=== PATIENT | female | born 1980 ===

== ENCOUNTER 2018-03-01 14:44 | Emergency (ER) | payer OTHER, MEDICAID ==
[2018-03-01 15:33] VITALS: BMI 26.5
--- NOTE | 2018-03-01 15:47 | OBHP ---
Datetime: 03/01/2018 15:06 IP Adm Impression: , intrauterine IP Admit Plan: Observation/Evaluation Admit Comment, IP Provider: 37 yo female with an IUP at 35.2 weeks and presents with c/o of vaginal bleeding x 2 today when she wipes herself. Upon further questioning she states that it was only spott ing noted in the toilet paper and further states that she had a Baby Shower yesterday and she was on her feet all day. Admits to adequate FM. No gush of fluid and no pains or contractions. Denies recent intercourse. Admits to drinking little water SSE exam revealed no blood or fluid in vagina and tested Nitrazine negative SVE cx: closed, long thick and high. Urine clear and denied any urinary complaints. One contraction noted with mild irritability Gave po hydration and will continue monitoring Pelvic Type - PN: Adequate Extremities - PN: Normal Abdomen - PN: Normal Back - PN: Normal Breast - PN: Not Done Lungs - PN: Normal Heart - PN: Normal Thyroid - PN: Normal Neurologic - PN: Normal HEENT - PN: Normal General - PN: Normal FHR - Baseline A Provider: 140 Membranes, Provider: Intact Contraction Comments Provider: Ocassional Gestation - Est Wks by US: 35.2 Nitrazine Provider: Negative EGA AdmitDate IP: 35.2 Vital Signs Provider: Reviewed; Within Normal Limits IP Chief Complaint: Vaginal bleeding NICHD Variability Prov Fetus A: Moderate 6-25bpm NICHD Accel Fetus A IP Provider: 10X10 FHR Category Provider Fetus A: Category I NICHD Decel Fetus A IP Provider: None Dilatation, Provider: 0 Effacement, Provider: 0 Station, Provider: High Genitourinary Exam: Normal DTRs - PN: Normal
[2018-03-01 16:01] LABS: SQUAMOUS EPITHIAL 2 /hpf (0-5); URINE BACTERIA OCC (<OCC); URINE BILIRUBIN NEGATIVE (NEGATIVE); URINE BLOOD 1+ (NEGATIVE); URINE CLARITY Clear (Clear); URINE COLOR Yellow (YELLOW); URINE GLUCOSE (UA) NORMAL (Normal); URINE LEUKOCYTE ESTERASE NEG Leu/uL (Negative); URINE PROTEIN NEGATIVE (NEGATIVE); URINE UROBILINOGEN NORMAL mg/dL (0.2-1.0)
== END 2018-03-01 17:06 | disposition home or self-care (01) ==
LOC: C.EROB 14:44
DX: O46.8X3 Other antepartum hemorrhage, third trimester (principal); Z3A.35 35 weeks gestation of pregnancy

== ENCOUNTER 2018-03-02 08:33 | Inpatient (IN) | payer MEDICAID, OTHER ==
[2018-03-01 15:33] VITALS: BMI 26.5
[2018-03-02] MEDS ORDERED: Lactated Ringer's 1,000 ML IV ONE ×2 (08:47→09:24)
--- NOTE | 2018-03-02 09:18 | OBHP ---
Datetime: 03/02/2018 09:05 IP Adm Impression: , intrauterine IP Admit Plan: Admit to unit Admit Comment, IP Provider: 37 yo female with an IUP at 35.3 weeks aprevius cxs seen yesterda with v b and ctx dc home ,reprots contractions since 4am, eveyr 5-10 min, dnie sany lof, +FM and reprots spo tting with wiping, dark red, no clots. Denies recent intercourse. 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 PMH: Hx of herpes PSH: CxS MEDS: PNV< Valtrex FHX: non coti butory NKDA A/P @ 35.3 wks GA previous cesearean section with ROM in early labor admit to L+D npo, ivf admissin labs cleesteone precop antibiocs abdomina prepe urias to gravity scds pt advised on pretemratu deivery with risk sassoiciated with transfer Pelvic Type - PN: Adequate Extremities - PN: Normal Abdomen - PN: Normal Back - PN: Normal Breast - PN: Not Done Lungs - PN: Normal Heart - PN: Normal Thyroid - PN: Not Done Neurologic - PN: Normal HEENT - PN: Normal General - PN: Normal Presentation-Admit: Vertex FHR - Baseline A Provider: 125 Amniotic Fluid Color, Provider: Clear Membranes, Provider: Ruptured Contraction Comments Provider: q 2-3 min Comments, ACOG Physical Exam: Postiive pooling clear blod tinged, postivei nitraine postive amnisure Gestation - Est Wks by US: 35.3 Pool Provider: Positive Nitrazine Provider: Positive EGA AdmitDate IP: 35.3 Vital Signs Provider: Reviewed IP Chief Complaint: Uterine contractions NICHD Variability Prov Fetus A: Moderate 6-25bpm FHR Category Provider Fetus A: Category II NICHD Decel Fetus A IP Provider: None Dilatation, Provider: 1 Effacement, Provider: 80 Station, Provider: -2 Genitourinary Exam: Normal DTRs - PN: Normal
[2018-03-02 09:24] LABS: BASO # 0.1 K/uL (0.0-0.2); BASO % 0.6 % (0.0-2.0); EOS % 0.4 % (0.0-4.0); HEMOGLOBIN 13.1 g/dL (11.0-16.0); LYMPH # 1.5 K/uL (1.0-4.3); LYMPH % 15.2 % (20.0-40.0); MEAN CELL VOLUME 93.9 fL (81.0-99.0); MEAN CORPUSCULAR HEMOGLOBIN 33.1 pg (27.0-31.0); MEAN CORPUSCULAR HGB CONC 35.3 g/dL (33.0-37.0); MEAN PLATELET VOLUME 9.8 fL (7.2-11.7); MONO # 0.6 K/uL (0.0-0.8); MONO % 5.6 % (0.0-10.0); NEUT # 7.7 K/uL (1.8-7.0); NEUT % 78.2 % (50.0-75.0); RBC 3.97 Mil/uL (3.80-5.20); RED CELL DISTRIBUTION WIDTH 13.4 % (11.5-14.5); WHITE BLOOD COUNT 9.8 K/uL (4.8-10.8)
[2018-03-02] MEDS ORDERED: Sodium Citrate/Citric Acid 15 ml Sol PO ONE (09:24)
[2018-03-02] MEDS ORDERED: ceFAZolin IV 2 gm in Dextrose 2 GM/50 ML BAG IVPB ONE ×2 (09:24→10:45)
--- NOTE | 2018-03-02 09:34 | OBADHP ---
Datetime: 03/02/2018 09:05 Admit Comment, IP Provider: 37 yo female with an IUP at 35.3 weeks aprevius cxs seen yesterda with v b and ctx dc home ,reprots contractions since 4am, eveyr 5-10 min, dnie sany lof, +FM and reprots spo tting with wiping, dark red, no clots. Denies recent intercourse. 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 PMH: Hx of herpes PSH: CxS MEDS: PNV< Valtrex FHX: non coti butory NKDA A/P @ 35.3 wks GA previous cesearean section with ROM in early labor admit to L+D npo, ivf admissin labs cleesteone precop antibiocs abdomina prepe urias to gravity scds pt advised on pretemratu deivery with risk sassoiciated with transfer Pelvic Type - PN: Adequate Extremities - PN: Normal Abdomen - PN: Normal Back - PN: Normal Breast - PN: Not Done Lungs - PN: Normal Heart - PN: Normal Thyroid - PN: Not Done Neurologic - PN: Normal HEENT - PN: Normal General - PN: Normal Presentation-Admit: Vertex FHR - Baseline A Provider: 125 Amniotic Fluid Color, Provider: Clear Membranes, Provider: Ruptured Contraction Comments Provider: q 2-3 min Comments, ACOG Physical Exam: Postiive pooling clear blod tinged, postivei nitraine postive amnisure Gestation - Est Wks by US: 35.3 Pool Provider: Positive Nitrazine Provider: Positive Vital Signs Provider: Reviewed IP Chief Complaint: Uterine contractions NICHD Variability Prov Fetus A: Moderate 6-25bpm FHR Category Provider Fetus A: Category II NICHD Decel Fetus A IP Provider: None Dilatation, Provider: 1 Effacement, Provider: 80 Station, Provider: -2 Genitourinary Exam: Normal DTRs - PN: Normal EGA AdmitDate IP: 35.3 IP Adm Impression: , intrauterine IP Admit Plan: Admit to unit Datetime: 03/01/2018 15:06 NICHD Accel Fetus A IP Provider: [facility]
[2018-03-02 09:35] LABS: INR 0.9; PROTHROMBIN TIME 10.2 SECONDS (9.7-12.2)
[2018-03-02 09:36] LABS: URINE BILIRUBIN NEGATIVE (NEGATIVE); URINE BLOOD 3+ (NEGATIVE); URINE CLARITY Clear (Clear); URINE COLOR Straw (YELLOW); URINE GLUCOSE (UA) NORMAL (Normal); URINE LEUKOCYTE ESTERASE NEG Leu/uL (Negative); URINE PROTEIN NEGATIVE (NEGATIVE); URINE UROBILINOGEN NORMAL mg/dL (0.2-1.0)
[2018-03-02 09:45] LABS: CALCIUM 8.7 mg/dl (8.6-10.4); GFR AFRICAN-AMERICAN > 60; GFR NON-AFRICAN AMERICAN > 60
[2018-03-02 09:46] LABS: ALBUMIN 3.4 g/dL (3.5-5.0); ALT/SGPT 12 U/L (9-52); AST/SGOT 42 U/L (14-36); BLOOD UREA NITROGEN 7 mg/dL (7-17)
[2018-03-02 09:48] LABS: SQUAMOUS EPITHIAL 2 /hpf (0-5); URINE BACTERIA RARE (<OCC)
[2018-03-02] MEDS ORDERED: Betamethasone Soluspan 30 mg/5mL Inj Susp IM STA (10:42)
[2018-03-02] MEDS ORDERED: Sodium Citrate/Citric Acid 15 ml Sol ONE (10:45)
[2018-03-02] MEDS ORDERED: Oxytocin 20 units in LR 2,000 ML IV ONE (10:47)
[2018-03-02] MEDS ORDERED: Oxytocin 10 Units/ml Inj ONE (12:32)
--- NOTE | 2018-03-02 12:59 | OBDS ---
DELIVERY PERSONNEL Delivery Doctor: Shannan Bedolla MD Scrub Nurse: marko Wolf: Owen Garcia RN Anesthesiologist: pablo MATERNAL INFORMATION Delivery Anesthesia: Spinal Medications in Delivery: pitocin 20 Placenta Cultured: Yes Maternal Complications: Premature Rupture of Membranes Provider Comments: live femlae ifnat agprs 9.9 weight of 6lbs noral apeparing uteurs tubes adno vareis bilatearlly pediatrican prseetn for delivery preivous cesearen section, rupture of membraens bloodly fluid LABOR SUMMARY EDC: 04/03/2018 00:00 No. Babies in Womb: 1 Attempted: No Labor Anesthesia: None LABOR INFORMATION Onset of Labor: 03/02/2018 04:00 Oxytocin: N/A Group B Beta Strep: Not Done Antibiotics # of Doses: 1 Antibiotics Time of Last Dose: 1100 Steroids Given: None Reason Steroids Not Administered: Not Applicable MEMBRANES Membranes Rupture Method: Spontaneous Rupture of Membranes: 03/02/2018 04:00 Length of Rupture (hrs): 8.38 Amniotic Fluid Color: Clear Amniotic Fluid Amount: Moderate Amniotic Fluid Odor: Normal STAGES OF LABOR Stage 3 hrs: 0 Stage 3 min: 1 Total Time in Labor hrs: 8 Total Time in Labor min: 24 VAGINAL DELIVERY Episiotomy: None Laceration Extension: N/A Laceration Type: None CSECTION DELIVERY Primary Indication: Repeat Elective Secondary Indication: labor, srom CSection Urgency: Emergency CSection Incidence: Repeat Labor: No Labor Elective: Elective CSection Incision: Lower Uterine Transverse BABY A INFORMATION Infant Delivery Date/Time: 03/02/2018 12:23 Method of Delivery: Born in Route : No : N/A Forceps: N/A Vacuum Extraction: N/A Shoulder Dystocia : No SHOULDER DYSTOCIA BABY A Delivery Date/Time: 03/02/2018 12:23 PRESENTATION/POSITION BABY A Presentation: Cephalic Cephalic Presentation: Vertex Breech Presentation: N/A PLACENTA INFORMATION BABY A Placenta Delivery Time : 03/02/2018 12:24 Placenta Method of Delivery: Expressed Placenta Status: Delivered SCORES BABY A Heart Rate 1 min: >100 bpm Resp Effort 1 min: Good Cry Reflex Irritability 1 min: Cough or Sneeze or Pulls Away Muscle Tone 1 min: Active Motion Color 1 min: Body [place], Extremities Blue Resuscitation Effort 1 min: Tactile Stimulation SCORE 1 MIN: 9 Heart Rate 5 min: >100 bpm Resp Effort 5 min: Good Cry Reflex Irritability 5 min: Cough or Sneeze or Pulls Away Muscle Tone 5 min: Active Motion Color 5 min: Body [place], Extremities Blue SCORE 5 MIN: 9 INFORMATION BABY A Gestational Age at Delivery: 35.3 Gestational Status: Infant Outcome : Liveborn Infant Condition : Stable Infant Sex: Female IDENTIFICATION/MEDS BABY A ID Band Number: [id number] ID Band Location: Left Leg; Left Arm Sensor Applied: Yes Sensor Number: [id number] Sensor Location : Cord Clamp WEIGHT/LENGTH BABY A Infant Birthweight (gms): 2735 Infant Weight (lb): 6 Weight (oz): 0 Length Inches: 18.25 Infant Length cms: 46.4 CORD INFORMATION BABY A No. Cord Vessels: 3 Nuchal Cord : Around Neck x1, Loose Cord Blood Taken: Yes Suction: Mouth; Nose ASSESSMENT BABY A Complications: None Physical Findings at Delivery: Within Normal Limits Infant Respirations: Appears Normal Offal Worker/ALS Called : No Care By: karen Transferred To: [facility]
--- NOTE | 2018-03-02 13:05 | PCM.SURG1 ---
Surgeon's Initial Post Op Note - Surgeon's Notes Surgeon: Jeanna Bedolla MD Transfer Driver: Felix Marshall MD Type of Anesthesia: Spinal Pre-Operative Diagnosis: 35+ weeks, previus cesearen section, rupture of membranes ctnracitn in early labor Operative Findings: live female infant agpars 9,9 weight of 6lbs normal appearing uteurs, tubes and ovaries bilatelraly. Dr James Marshall was surgical clinical reviewer and prseetn for entire case adn essential in gaiing netry, retraction , expsoure, hlding bladder blade clsoign all layers,. pediatricn prestn fo rdeilvery Post-Operative Diagnosis: same as above Operation Performed: Repeat low transveres cesearsen section Specimen/Specimens Removed: placenta Estimated Blood Loss: EBL {In ML}: 800 Blood Products Given: N/A Drains Used: No Drains Date of Surgery/Procedure: 03/02/18 Time of Surgery/Procedure: 12:00
[2018-03-02] MEDS: Simethicone 80 mg Chewtab PO SCH ×2 (17:19→22:30)
--- NOTE | 2018-03-03 00:13 | OP ---
PROCEDURE DATE: 03/02/2018 SURGEON: Jeanna Bedolla MD PUMPER HELPER: Felix Marshall MD TYPE OF ANESTHESIA: Spinal. PREOPERATIVE DIAGNOSES: at 35 plus weeks, previous section, rupture of membranes, jenny in labor POSTOPERATIVE DIAGNOSES: at 35 plus weeks, previous section, rupture of membranes, jenny in labor. OPERATIVE FINDINGS: Live female infant, Apgars 9 and 9, weight of 6 pounds. Normal appearing uterus, tubes, and ovaries bilaterally. Dr. Felix Marshall was the surgical tech who was present for the entire case and assisted in gaining entry, retraction, exposure, holding the bladder blade, closing all layers. Churn Operator present for delivery. OPERATION PERFORMED: Repeat low transverse section. SPECIMEN REMOVED: Placenta. ESTIMATED BLOOD LOSS: 800 mL. BLOOD PRODUCTS: None. COMPLICATIONS: None. DESCRIPTION OF PROCEDURE: The patient is a 37-year-old para 1 at 35 plus weeks with previous section and was evaluated yesterday with vaginal bleeding, jenny, was subsequently sent home after cleared. The patient returned today with vaginal bleeding with and jenny every 2 to 5 minutes, increasing intensity and frequency. The patient was evaluated, rupture of membranes was confirmed. The patient was given Celestone in addition to ampicillin for GBS prophylaxis, one dose of tocolysis with terbutaline was given as the patient was prepped for the operating room medication going on. Risks, benefits, alternatives, and indications of repeat low transverse section was done for the case. Consent was obtained. The patient was taken to the operating room where she was given preoperative prophylactic antibiotics. The patient was then prepped and draped in the usual sterile fashion after anesthesia was deemed to be adequate. A Pfannenstiel skin incision was made with a scalpel and carried down to the to the underlying fascia with the Bovie. The fascia was incised in the midline, and the incision was extended laterally with Bovie. The inferior aspect of the fascial incision was grasped with Allis and Cameron clamps, and the underlying rectus muscles were dissected off bluntly. Attention was then turned to the superior aspect in a similar fashion. It was grasped with Allis and Cameron clamps, and the underlying rectus muscles were dissected off bluntly. The rectus muscle was then bluntly in the midline using two Allis clamps in the midline using the scalpel incising the clear area. Finger was used to extend the incision, entering into the clear space. Peritoneum identified and entered bluntly. The incision was extended laterally and superiorly until there was good visualization of the bladder. The lower end of the Mcclusky was then re-inserted. The lower uterine segment was incised in transverse fashion superior to the bladder flap, and the uterine incision was extended laterally bluntly. Surgeon's hand entered the uterine cavity. The 's head was delivered atraumatically followed by delivery of the body, followed by delivery of the shoulders. Both oral and nasal passages of the baby were bulb suctioned. The umbilical cord was clamped and cut. Baby was handed off to the awaiting wire photo operator. Cord was noted around the neck x1 that was reduced. Cord blood and cord gases were collected and sent x2. The placenta was then delivered manually. The uterus was exteriorized of all clots and debris. The uterine incision was repaired with 0 Vicryl in a running continuous locked fashion. A second layer of same suture was used to close the uterus in a running imbricating manner. There was good hemostasis at the uterine incision site. There was normal tubes and ovaries bilaterally. The uterus was then returned into the abdomen. Paracolic gutters were cleared off all clots and debris. The peritoneum was reapproximated and closed with 2-0 chromic in a running continuous fashion. The rectus was reapproximated and closed with 2-0 chromic in an interrupted manner. The fascia was reapproximated and closed with 0 Vicryl in a running continuous fashion. The subcutaneous layer was closed with 2-0 plain in an interrupted manner, and the skin was re-approximated and closed with shay. At the end of the procedure, all needles, sponge, and instrument counts were noted as correct x2. The patient tolerated the procedure well and was transferred to the recovery room in stable condition. Jeanna Bedolla MD
--- NOTE | 2018-03-03 08:06 | OBPPN ---
Datetime: 03/03/2018 07:46 PP Pain Prov: Within normal limits PP Nausea Prov: Denies PP Flatus Prov: Yes PP BM Prov: No PP Breasts Prov: Normal PP Heart Prov: Normal PP Lungs Prov: Normal PP Abdomen/Uterus Prov: Normal PP Lochia Prov: Normal PP Vulva/Perineum Prov: Normal PP Extremities Prov: Normal PP Progress Prov: Normal PP Comments Phys Exam Prov: abd: dressing dry, clean fundus: @umbilicus PP Impression Prov: Normal progression PP Plan Prov: Continue present management PP Progress Note Prov: s: tolerated liquids well this am. +flatus. denies n/v. pain controlled with medic p: advance diet as tolerated remove dressing in 24hrs ambulate percocet _ motrin prn pain IP PP Procedures: None Vital Signs Provider PP: Reviewed Vital Signs Provider Details PP: P: 60-116 (Annotations: Data stored by CPN on behalf of user)
[2018-03-03 09:00] LABS: MEAN CELL VOLUME 95.1 fL (81.0-99.0); MEAN CORPUSCULAR HEMOGLOBIN 32.9 pg (27.0-31.0); MEAN CORPUSCULAR HGB CONC 34.6 g/dL (33.0-37.0); MEAN PLATELET VOLUME 9.4 fL (7.2-11.7); RBC 2.07 Mil/uL (3.80-5.20); RED CELL DISTRIBUTION WIDTH 13.5 % (11.5-14.5)
[2018-03-03 09:03] LABS: HEMOGLOBIN 6.8 g/dL (11.0-16.0); WHITE BLOOD COUNT 15.1 K/uL (4.8-10.8)
[2018-03-03 09:29] LABS: ALB/GLOB RATIO 1.1 (1.0-2.1); ALBUMIN 2.6 g/dL (3.5-5.0); ALT/SGPT 32 U/L (9-52); AST/SGOT 37 U/L (14-36); BLOOD UREA NITROGEN 15 mg/dL (7-17); CALCIUM 8.4 mg/dl (8.6-10.4); GFR AFRICAN-AMERICAN > 60; GFR NON-AFRICAN AMERICAN > 60
[2018-03-03] MEDS: Oxycodone/Acetaminophen 5/325 mg Tab PO PRN ×2 (09:57→17:16)
[2018-03-03] MEDS: Prenatal Multivit/Folic Acid/Iron Tab PO SCH (09:57)
[2018-03-03] MEDS: Simethicone 80 mg Chewtab PO SCH ×4 (09:57→22:01)
[2018-03-03] MEDS ORDERED: Bisacodyl 5mg EC Tab PO ONE (13:09)
[2018-03-03 19:15] LABS: BASO % 0.1 % (0.0-2.0); LYMPH # 1.8 K/uL (1.0-4.3); LYMPH % 12.2 % (20.0-40.0); MEAN CELL VOLUME 95.1 fL (81.0-99.0); MEAN CORPUSCULAR HEMOGLOBIN 32.5 pg (27.0-31.0); MEAN CORPUSCULAR HGB CONC 34.1 g/dL (33.0-37.0); MEAN PLATELET VOLUME 8.8 fL (7.2-11.7); MONO # 1.1 K/uL (0.0-0.8); MONO % 7.3 % (0.0-10.0); NEUT % 80.4 % (50.0-75.0); RBC 1.95 Mil/uL (3.80-5.20); RED CELL DISTRIBUTION WIDTH 13.6 % (11.5-14.5)
[2018-03-03 19:41] LABS: HEMOGLOBIN 6.3 g/dL (11.0-16.0)
[2018-03-03] MEDS: Docusate-Senna 50 mg-8.6 mg Tab PO SCH (22:01)
--- NOTE | 2018-03-04 06:38 | OBPPN ---
Datetime: 03/03/2018 20:33 PP Progress Note Prov: postop hgh 6.8 repeat 6.3 Pt denies syncope/palpitations associated w/ ambulation. Denies malaise. p: d/w pt decreased hgb and indicaations for blood transfusion. she requests further observation repeat hgb tomorrow am
[2018-03-04 07:35] LABS: MEAN CELL VOLUME 96.2 fL (81.0-99.0); MEAN CORPUSCULAR HEMOGLOBIN 33.3 pg (27.0-31.0); MEAN CORPUSCULAR HGB CONC 34.7 g/dL (33.0-37.0); RBC 1.7 Mil/uL (3.80-5.20); RED CELL DISTRIBUTION WIDTH 13.7 % (11.5-14.5); WHITE BLOOD COUNT 14.5 K/uL (4.8-10.8)
[2018-03-04 07:43] LABS: HEMOGLOBIN 5.7 g/dL (11.0-16.0)
[2018-03-04] MEDS ORDERED: DiphenhydrAMINE 50 mg/ml Inj IVP STA ×2 (08:23→10:47)
[2018-03-04] MEDS: Prenatal Multivit/Folic Acid/Iron Tab PO SCH (10:32)
[2018-03-04] MEDS: Simethicone 80 mg Chewtab PO SCH ×4 (10:32→21:06)
--- NOTE | 2018-03-04 14:20 | OBPPN ---
Datetime: 03/04/2018 14:16 PP Pain Prov: Within normal limits PP Nausea Prov: Denies PP Flatus Prov: Yes PP Comments Phys Exam Prov: abd non tender mildly dis incision clean and dry PP Impression Prov: Normal progression PP Plan Prov: Continue present management PP Progress Note Prov: pt was seen at bed side, pain under control,no n/v, tolerating deit,voiding,m in loc, flatus+ pod32 s/p c/s anemia start bloo transfusion cont painma cont pos op care post 4 hr cbc Vital Signs Provider PP: Reviewed; Within Normal Limits
[2018-03-04] MEDS: Docusate-Senna 50 mg-8.6 mg Tab PO SCH (21:07)
[2018-03-04] MEDS: Oxycodone/Acetaminophen 5/325 mg Tab PO PRN (23:32)
[2018-03-05 04:27] LABS: BASO % 0.2 % (0.0-2.0); EOS % 0.3 % (0.0-4.0); LYMPH # 2.5 K/uL (1.0-4.3); LYMPH % 17.1 % (20.0-40.0); MEAN CELL VOLUME 91.6 fL (81.0-99.0); MEAN CORPUSCULAR HEMOGLOBIN 31.8 pg (27.0-31.0); MEAN CORPUSCULAR HGB CONC 34.8 g/dL (33.0-37.0); MEAN PLATELET VOLUME 8.9 fL (7.2-11.7); MONO % 6.8 % (0.0-10.0); NEUT # 11.2 K/uL (1.8-7.0); NEUT % 75.6 % (50.0-75.0); NRBC % 0.1 % (0.0-2.0); RBC 2.82 Mil/uL (3.80-5.20); RED CELL DISTRIBUTION WIDTH 14.6 % (11.5-14.5); WHITE BLOOD COUNT 14.8 K/uL (4.8-10.8)
[2018-03-05] MEDS: Simethicone 80 mg Chewtab PO SCH ×2 (09:54→13:56)
[2018-03-05] MEDS: Prenatal Multivit/Folic Acid/Iron Tab PO SCH (09:55)
--- NOTE | 2018-03-05 11:13 | OBDCSUM ---
Datetime: 03/05/2018 11:09 Discharged to, Provider: Home Follow up at, Provider: [facility] Disch Instr Activity: Normal activity; May be up to bathroom; May be up for meals; May Shower Disch Instr Diet: Regular Discharge Instructions, Provider: Routine instructions given Discharge Diagnosis, Provider: Labor; Delivery Discharge Time: 03/05/2018 12:00 Follow up in weeks, Provider: 03/09/18 Contraception discussed, Prov: Yes Disch Activity Restrictions: No exercising; No lifting; No sexual activity; Nothing in vagina - Inte rcourse, tampons, douche Discharge Diagnosis Prov Other: Advanced maternal age Status repeat section Acute blood loss anemia Status post blood transfusion Contraception counseling Contraception after Delivery: Foam/Condoms
--- NOTE | 2018-03-05 11:15 | OBPPN ---
Datetime: 03/05/2018 11:02 PP Pain Prov: Within normal limits PP Nausea Prov: Denies PP Flatus Prov: Yes PP BM Prov: Yes PP Breasts Prov: Normal PP Heart Prov: Normal PP Lungs Prov: Normal PP Abdomen/Uterus Prov: Normal PP Lochia Prov: Normal PP Vulva/Perineum Prov: Not Done PP CVA Tenderness Prov: Normal PP C/S Incision Prov: Normal PP Progress Prov: Normal PP Comments Phys Exam Prov: Abdomen: Soft. Non distended. Fundus 1 FB above umbilicus, firm, mobile, nontender. Incidiosn with shay - clean dry and intact. Minimal lochia rubra Extremities: warm to touch, no calf tenderness, no cyanosis or edema All other systems reviewed and are negative PP Impression Prov: Normal progression PP Plan Prov: Discharge PP Progress Note Prov: Patient received im room 459 sitting on bed, in good spirits. Denies headach e, dizziness, lightheadednes, chest pain, palpitations, shortness of breath. Patient admits to feelin g "much better". (+) P.E.: as above. Small, in NAD. Awake, alert, oriented to time, person and place. Pleasant and coop erative. - H/H today (S/P 3 Units PRBCs) /25.8; Rh(+) Assessment: POD#3 , 37 y.o. P1102, S/P emergency repeat C/S at 35wks due contractions. Acu te blood loss anemia - S/P blood transfusion (3Units). Asymptomatic and hemodynamically stable. Retur guy GI and functions. Patient desires to use condoms for contraception. Clinically stable. Plan: 1) Discharge home 2) See full discharge instructions Vital Signs Provider PP: Reviewed; Within Normal Limits
[2018-03-05 19:39] VITALS: BP 103/69; PULSE 63; RESP 18; TEMP 98; O2SAT 100
== END 2018-03-05 14:30 | disposition home or self-care (01) | DRG 766 ==
LOC: C.EROB 08:33 → C.4D 09:22 → C.4M 15:05
PROVIDERS: ADMIT Obstetrics & Gynecology; ATTEND Obstetrics & Gynecology
PROC: 10D00Z1 Extraction of Products of Conception, Low, Open Approach (ICD-10-PCS; principal; 2018-03-02)
DX: O60.14X0 Preterm labor third trimester with preterm delivery third trimester, not applicable or unspecified (principal); O42.013 Preterm premature rupture of membranes, onset of labor within 24 hours of rupture, third trimester; O69.81X0 Labor and delivery complicated by cord around neck, without compression, not applicable or unspecified; O34.219 Maternal care for unspecified type scar from previous cesarean delivery; Z3A.35 35 weeks gestation of pregnancy; Z37.0 Single live birth